=== PATIENT | male | born 1975 | race Caucasian/White ===

== ENCOUNTER 2022-11-08 09:47 | Outpatient (CLI) | payer OTHER, SELFPAY ==
[2022-11-08 13:29] LABS: Albumin* 4.7 g/dL (3.3-5.0)
[2022-11-08 13:32] LABS: Bilirubin Direct* 0.2 mg/dL (0.0-0.5); Bilirubin Total* 0.8 mg/dL (0.1-1.5); Cholesterol* 228 mg/dL (90-199); HDL Cholesterol* 51 mg/dL (>=40); LDL Cholesterol Calculated 152 mg/dL (<100); Total Protein* 7.2 g/dL (6.0-8.3); Triglycerides* 124 mg/dL (40-149)
[2022-11-08 13:33] LABS: Alanine Aminotransferase* 25 U/L (4-50); Alkaline Phosphatase* 77 U/L (40-150); Aspartate Amino Transferase* 31 U/L (12-35)
== END 2022-11-08 09:48 | disposition home or self-care (01) ==
PROVIDERS: PCP Family Medicine; Visit Provider Family Medicine
DX: E78.00 Pure hypercholesterolemia, unspecified (principal); I10 Essential (primary) hypertension; E11.9 Type 2 diabetes mellitus without complications
CPT/HCPCS: 80061; 80076

== ENCOUNTER 2023-08-29 08:22 | Outpatient (CLI) | payer OTHER, SELFPAY | END 2023-08-29 08:23 | disposition home or self-care (01) | LOC: NFLDREF 09-01 17:52 | PROVIDERS: PCP Family Medicine; Referring Provider Family Medicine; Visit Provider Family Medicine | DX: E11.9 Type 2 diabetes mellitus without complications (principal); I10 Essential (primary) hypertension; E78.2 Mixed hyperlipidemia | CPT/HCPCS: 80048; 82043; 82570 ==

== ENCOUNTER 2024-10-07 08:52 | Outpatient (CLI) | payer OTHER, SELFPAY | END 2024-10-07 08:53 | disposition home or self-care (01) | PROVIDERS: PCP Family Medicine; Visit Provider Family Medicine | DX: I10 Essential (primary) hypertension (principal); E78.2 Mixed hyperlipidemia; E11.9 Type 2 diabetes mellitus without complications | CPT/HCPCS: 80048; 80061; 84460 ==

== ENCOUNTER 2025-01-10 09:29 | Outpatient (CLI) | payer OTHER, SELFPAY | END 2025-01-10 09:30 | disposition home or self-care (01) | LOC: FBOREF 09:30 | PROVIDERS: PCP Family Medicine; Visit Provider Family Medicine | DX: E78.2 Mixed hyperlipidemia (principal) | CPT/HCPCS: 80061 ==

== ENCOUNTER 2025-02-11 06:55 | Outpatient (CLI) | payer OTHER, SELFPAY ==
--- NOTE | 2025-02-11 11:32 | P.ANES_ITS ---
Anesthesia Charges Start Date/Time Anesthesia Start Date: 02/11/25 Anesthesia Start Time: 08:22 Stop Date/Time Anesthesia Stop Date: 02/11/25 Anesthesia Stop Time: 08:52 Coding CPT Codes CPT Codes: DAVID LWR INTST NDSC NOS - [id number] ([id number]) QK - DRUM STOCK CLERK 2-4 CNCRNT DAVID PROC, QX - MELLOWING MACHINE OPERATOR SVC W/ MD MED DIRECTION, P2 - PATIENT W/MILD SYST DISEASE
--- NOTE | 2025-02-11 11:32 | W.ANESCHARGE ---
Anesthesia Charges Start Date/Time Anesthesia Start Date: 02/11/25 Anesthesia Start Time: 08:22 Stop Date/Time Anesthesia Stop Date: 02/11/25 Anesthesia Stop Time: 08:52 Coding CPT Codes CPT Codes: DAVID LWR INTST NDSC NOS - [id number] ([id number]) QK - PHOTORESIST CONTACT PRINTER 2-4 CNCRNT DAVID PROC, QX - ROLLING MILL PLUGGER SVC W/ MD MED DIRECTION, P2 - PATIENT W/MILD SYST DISEASE
--- NOTE | 2025-02-11 12:29 | P.ANES_ITS ---
Anesthesia Charges Start Date/Time Anesthesia Start Date: 02/11/25 Anesthesia Start Time: 08:22 Stop Date/Time Anesthesia Stop Date: 02/11/25 Anesthesia Stop Time: 08:52 Coding CPT Codes CPT Codes: DAVID LWR INTST NDSC NOS - [id number] ([id number]) P2 - PATIENT W/MILD SYST DISEASE, QK - BUSINESS TRANSFORMATION MANAGER 2-4 CNCRNT ANES PROC, QX - MANAGER CONVENTION SVC W/ MD MED DIRECTION
--- NOTE | 2025-02-11 12:29 | W.ANESCHARGE ---
Anesthesia Charges Start Date/Time Anesthesia Start Date: 02/11/25 Anesthesia Start Time: 08:22 Stop Date/Time Anesthesia Stop Date: 02/11/25 Anesthesia Stop Time: 08:52 Coding CPT Codes CPT Codes: DAVID LWR INTST NDSC NOS - [id number] ([id number]) P2 - PATIENT W/MILD SYST DISEASE, QK - LOCAL AREA NETWORK SYSTEMS ADMINSTRATOR 2-4 CNCRNT ANES PROC, QX - PORTFOLIO MANAGEMENT MARKETING SVC W/ MD MED DIRECTION
== END 2025-02-11 06:56 | disposition home or self-care (01) ==
LOC: OP CLINIC 06:55
PROVIDERS: PCP Family Medicine; Visit Provider Surgery
DX: Z12.11 Encounter for screening for malignant neoplasm of colon (principal); D12.3 Benign neoplasm of transverse colon; Z83.719 Family history of colon polyps, unspecified
CPT/HCPCS: 00811; 45385; 88305; J2704